=== PATIENT | male | born 1960 | race Caucasian/White ===

== ENCOUNTER → 2017-10-31 | Day surgery (SDC) | payer OTHER ==
[2017-10-29 12:27] VITALS: BMI 31.1
[~2017-10-31] MED LIST: LACTATED RINGERS 1,000 ML IV SCH; LIDOCAINE 1% 20 ML VIAL (10MG/ML) FOR IV START INTRADERMA ONE; LIDOCAINE 1% INJ 10MG/ML (20 ML MDV) ONE; PROPOFOL 10 MG/ML 20 ML VIAL IV ONE
[2017-10-31 11:45] VITALS: TEMP 98.9
--- NOTE | 2017-10-31 12:10 | P.GSHP ---
History of Present Illness H&P Date: 10/31/17 Chief Complaint: GERD, screening colonoscopy 's is a 56-year-old male presents today for EGD and screening colonoscopy. Patient has had issues with GERD. Past Medical History Additional Past Medical History / Comment(s): hx ulcer. past hx treatment for h pylori History of Any Multi-Drug Resistant Organisms: None Reported Past Surgical History: Back Surgery, Orthopedic Surgery Additional Past Surgical History / Comment(s): reattachemt of fingers to rt hand. only has 2 fingers and thumb to rt hand. lt knee scope Past Anesthesia/Blood Transfusion Reactions: No Reported Reaction Smoking Status: Never smoker - Past Family History Mother Family Medical History: No Reported History Medications and Allergies Home Medications Medication Instructions Recorded Confirmed Type No Known Home Medications [No 10/29/17 10/31/17 History Known Home Medications] Allergies Allergy/AdvReac Type Severity Reaction Status Date / Time No Known Allergies Allergy Verified 10/31/17 11:45 Surgical - Exam Vital Signs Temp Pulse Resp BP Pulse Ox 98.9 F 100 18 133/85 96 10/31/17 11:44 10/31/17 11:44 10/31/17 11:44 10/31/17 11:44 10/31/17 11:44 - General well developed, no distress - Eyes PERRL - ENT normal pinna - Neck no masses - Respiratory normal expansion - Cardiovascular Rhythm: regular - Abdomen Abdomen: soft, non tender Assessment and Plan Assessment: GERD. We'll perform EGD. WE'LL perform screening colonoscopy.
--- NOTE | 2017-10-31 12:25 | P.OP ---
Date of Procedure: 10/31/17 Preoperative Diagnosis: GERD Screening colonoscopy Postoperative Diagnosis: Antral gastritis No evidence of hiatal hernia Mild esophagitis Diverticulosis Procedure(s) Performed: Colonoscopy EGD Anesthesia: PRABHU Surgeon: Bird Hamlin Pathology: other (Antrum, esophagus) Condition: stable Disposition: PACU Description of Procedure: The patient's placed on the endoscopy table in the lateral position. He received IV sedation. The gastroscope was placed oropharynx and passed into the esophagus and into the stomach. Scope was then placed through the pylorus. The first and second portion of duodenum appeared normal. Scope was then brought back the antrum and this appeared mildly inflamed. The GE junction was at 40 cm. There is no evidence of any hilar hernia. The distal esophagus appeared mildly inflamed a biopsies performed. The proximal esophagus appeared normal. Scope was withdrawn for patient. Next, digital rectal exam was performed which revealed no abnormalities. Flexible colonoscope was then placed patient anus passed throughout the entire colon. The ileocecal valve was visualized. The cecum, ascending and transverse colon appeared normal. In the descending; was mild diverticular changes. The scope was then brought back the rectum this appeared normal. Scope was withdrawn for patient.
[2017-10-31 12:36] VITALS: RESP 16
[2017-10-31 12:43] VITALS: BP 123/74; PULSE 84
== END ==
LOC: ORWHC2ENDO 10:56
PROVIDERS: ATTEND Surgery
DX: Z12.11 Encounter for screening for malignant neoplasm of colon (principal); K21.0 Gastro-esophageal reflux disease with esophagitis; K31.9 Disease of stomach and duodenum, unspecified; K29.70 Gastritis, unspecified, without bleeding; K57.30 Diverticulosis of large intestine without perforation or abscess without bleeding; Z87.11 Personal history of peptic ulcer disease; G47.33 Obstructive sleep apnea (adult) (pediatric); E66.9 Obesity, unspecified; Z68.31 Body mass index [BMI] 31.0-31.9, adult
CPT/HCPCS: 43239; J2001; J2704; G0121; 88305

== ENCOUNTER → 2020-08-17 | Outpatient (CLI) | payer OTHER ==
--- NOTE | 2020-08-18 07:39 | CT ---
EXAMINATION TYPE: CT chest wo con DATE OF EXAM: 08/17/2020 COMPARISON: NONE HISTORY: GERD, persistent cough x3 years. CT DLP: 484.50 mGycm. Automated Exposure Control for Dose Reduction was Utilized. TECHNIQUE: CT scan of the thorax is performed without IV contrast. FINDINGS: LUNGS: The lungs are grossly clear, there is no concerning parenchymal mass or nodule identified. T here is no pleural effusion or pneumothorax seen. Some elongated AP diameter of the trachea is presen t, cannot exclude mild underlying COPD. MEDIASTINUM: Lack of IV contrast is noted to limit evaluation for mediastinal and especially hilar ad enopathy. There are no definitive greater than 1 cm hilar or mediastinal lymph nodes. No cardiomega ly or pericardial effusion is seen. Coronary artery calcification in the LAD distribution. There is a scending aortic aneurysm measuring up to 4.3 cm in diameter on image 29 OTHER: Visualized liver is low dense consistent with diffuse fatty infiltration. Low dense 2.5 cm les ion left kidney is partially imaged suspect simple thin-walled cyst. IMPRESSION: No acute or chronic pulmonary process. There is 4.3 cm ascending aortic aneurysm noted.
== END | disposition home or self-care (01) ==
LOC: RADCTMAIN 16:30
PROVIDERS: ATTEND Internal Medicine Pulmonary Disease
DX: I71.2 Thoracic aortic aneurysm, without rupture (principal); G47.33 Obstructive sleep apnea (adult) (pediatric); K21.9 Gastro-esophageal reflux disease without esophagitis; J45.909 Unspecified asthma, uncomplicated
CPT/HCPCS: 71250

== ENCOUNTER → 2021-11-10 | Outpatient (CLI) | payer OTHER ==
[2021-11-10 17:18] LABS: ALT 111 U/L (10-49); AST 54 U/L (14-35); African American GFR (CKD) 93.7 (60.0-200.0); Albumin 4.6 g/dL (3.8-4.9); Alkaline Phosphatase 51 U/L (41-126); Bilirubin, Conjugated <0.20 mg/dL (0.20-0.40); Blood Urea Nitrogen 14.7 mg/dL (9.0-27.0); Carbon Dioxide 24.7 mmol/L (20.0-27.5); Chloride 105 mmol/L (96-109); Chol/HDL Ratio 4.97 Ratio; Globulin 2.7 g/dL (1.6-3.3); Glucose 108 mg/dL (70-110); Non-African American GFR(CKD) 80.9 (60.0-200.0); Potassium 4.6 mmol/L (3.5-5.5); Sodium 140 mmol/L (135-145); Total Protein 7.3 g/dL (6.2-8.2)
== END | disposition home or self-care (01) ==
LOC: LABWHC1 10:55
PROVIDERS: ATTEND Internal Medicine Interventional Cardiology
DX: Z00.00 Encounter for general adult medical examination without abnormal findings (principal)
CPT/HCPCS: 36415; 80048; 80061; 80076

== ENCOUNTER → 2021-12-03 | Outpatient (CLI) | payer OTHER ==
--- NOTE | 2021-12-04 07:05 | CT ---
EXAMINATION TYPE: CT angio chest DATE OF EXAM: 12/03/2021 COMPARISON: CT chest January 15, 2021 HISTORY: thoracic aneurysm CT DLP: 909 mGycm. Automated Exposure Control for Dose Reduction was Utilized. CONTRAST: CTA scan of the thorax is performed without and with IV Contrast, patient injected with 100 mL of Iso luis 370, aneurysm protocol. 3D reconstructed images are created on an independent workstation and rev iewed. FINDINGS: LUNGS: The lungs remain grossly clear, there is no concerning parenchymal mass or nodule identified. There is no pleural effusion or pneumothorax seen. The tracheobronchial tree is patent. Tiny calci fied plaque left lung base posteriorly coronal image 81 incidentally noted. MEDIASTINUM: Noncontrast images show no suspicious hyperdense material to suggest intramural hematoma . Ascending aorta measures up to 4.1 cm at the root with slight tapering to 4.0 cm before the arch. T here is normal three-vessel origin from the arch. There is no aneurysm extension into the arch or jordana cending aorta. There are no greater than 1 cm hilar or mediastinal lymph nodes. No cardiomegaly or pericardial effusion is seen. Some coronary artery calcifications redemonstrated on noncontrast image s. OTHER: Visualized liver is low dense chest spleen on noncontrast images consistent with diffuse fatty infiltration. IMPRESSION: Mild aneurysm of ascending aorta up to 4.1 cm. No significant change or progression of an eurysm from prior CT
== END | disposition home or self-care (01) ==
LOC: RADCTMAIN 16:48
PROVIDERS: ATTEND Internal Medicine Interventional Cardiology
DX: I71.2 Thoracic aortic aneurysm, without rupture (principal)
CPT/HCPCS: 71275; Q9967